=== PATIENT | female | born 1995 | race Caucasian/White ===

== ENCOUNTER 2021-07-20 21:18 | Emergency (ER) | payer BC ==
--- NOTE | 2021-07-20 22:03 | ED ---
Female Urogenital HPI - General Chief complaint: Vaginal Bleeding Stated complaint: 9 Wks preg,Spotting Time Seen by Provider: 07/20/21 21:30 Source: patient Mode of arrival: ambulatory Limitations: no limitations - History of Present Illness MD Complaint: vaginal bleeding Onset/Timin -: hour(s) Severity scale (1-10): 0 Improves with: none Worsens with: none Patient : Yes Number of weeks : 9 Associated Symptoms: vaginal bleeding - Related Data : 2 Para: 1 A: 0 Home Medications Medication Instructions Recorded Confirmed Pnv,Calcium 72/Iron/Folic Acid 1 each PO 11/09/15 11/09/15 [ Plus Tablet] Previous Rx's Medication Instructions Recorded Ibuprofen [Motrin] 600 mg PO Q6HR PRN #30 tab 11/12/15 Allergies Allergy/AdvReac Type Severity Reaction Status Date / Time No Known Allergies Allergy Verified 07/20/21 21:19 Review of Systems ROS Statement: Those systems with pertinent positive or pertinent negative responses have been documented in the HPI. ROS Other: All systems not noted in ROS Statement are negative. Constitutional: Denies: fever, chills Respiratory: Denies: cough, dyspnea Cardiovascular: Denies: chest pain, palpitations Gastrointestinal: Denies: abdominal pain, nausea, vomiting Genitourinary: Denies: dysuria, hematuria Musculoskeletal: Denies: back pain Skin: Denies: rash Neurological: Denies: headache, weakness, numbness Hematological/Lymphatic: Denies: easy bleeding Past Medical History Past Medical History: No Reported History History of Any Multi-Drug Resistant Organisms: None Reported Past Surgical History: Orthopedic Surgery Additional Past Surgical History / Comment(s): knee surgery Past Anesthesia/Blood Transfusion Reactions: No Reported Reaction Past Psychological History: No Psychological Hx Reported Smoking Status: Current every day smoker Past Alcohol Use History: None Reported Past Drug Use History: None Reported - Past Family History Mother Family Medical History: No Reported History General Exam Limitations: no limitations General appearance: alert, in no apparent distress Head exam: Present: atraumatic, normocephalic Eye exam: Present: normal appearance. Absent: scleral icterus, conjunctival injection ENT exam: Present: normal oropharynx Neck exam: Present: normal inspection Respiratory exam: Present: normal lung sounds bilaterally. Absent: respiratory distress, wheezes, rales, rhonchi, stridor Cardiovascular Exam: Present: regular rate, normal rhythm, normal heart sounds. Absent: systolic murmur, diastolic murmur, rubs, gallop GI/Abdominal exam: Present: soft, normal bowel sounds. Absent: distended, tenderness, guarding, rebound, rigid, mass, pulsatile mass, hernia Extremities exam: Present: normal inspection, normal capillary refill. Absent: pedal edema, calf tenderness Back exam: Present: normal inspection. Absent: CVA tenderness (R), CVA tenderness (L) Neurological exam: Present: alert Skin exam: Present: warm, dry, intact, normal color. Absent: rash Course Vital Signs 07/20/21 07/20/21 21:19 22:11 Temperature 98.5 F Pulse Rate 79 71 Respiratory 20 18 Rate Blood Pressure 148/108 142/99 O2 Sat by Pulse 99 99 Oximetry Medical Decision Making - Lab Data Result diagrams: 07/20/21 22:02 Lab Results 07/20/21 Range/Units 22:02 WBC 10.3 (3.8-10.6) k/uL RBC 4.44 (3.80-5.40) m/uL Hgb 13.9 (11.4-16.0) gm/dL Hct 41.0 (34.0-46.0) % MCV 92.2 (80.0-100.0) fL MCH 31.3 (25.0-35.0) pg MCHC 33.9 (31.0-37.0) g/dL RDW 12.9 (11.5-15.5) % Plt Count 223 (150-450) k/uL MPV 8.0 Neutrophils % 65 % Lymphocytes % 26 % Monocytes % 5 % Eosinophils % 1 % Basophils % 0 % Neutrophils # 6.7 (1.3-7.7) k/uL Lymphocytes # 2.7 (1.0-4.8) k/uL Monocytes # 0.6 (0-1.0) k/uL Eosinophils # 0.1 (0-0.7) k/uL Basophils # 0.0 (0-0.2) k/uL Disposition Clinical Impression: Threatened Disposition: HOME SELF-CARE Condition: Good Instructions (If sedation given, give patient instructions): Threatened Miscarriage (ED) Is patient prescribed a controlled substance at d/c from ED?: No Referrals: Stephen Linton MD [Primary Care Provider] - 1-2 days
[2021-07-20 22:12] LABS: Basophils % (A) 0 %; Eosinophils # (A) 0.1 k/uL (0-0.7); Eosinophils % (A) 1 %; HGB 13.9 gm/dL (11.4-16.0); Lymphocytes # (A) 2.7 k/uL (1.0-4.8); Lymphocytes % (A) 26 %; MCH 31.3 pg (25.0-35.0); MCHC 33.9 g/dL (31.0-37.0); MCV 92.2 fL (80.0-100.0); Monocytes # (A) 0.6 k/uL (0-1.0); Monocytes % (A) 5 %; Neutrophils # (A) 6.7 k/uL (1.3-7.7); Neutrophils % (A) 65 %; Platelet Count 223 k/uL (150-450); RBC 4.44 m/uL (3.80-5.40); RDW 12.9 % (11.5-15.5); WBC 10.3 k/uL (3.8-10.6)
[2021-07-20 22:15] VITALS: RESP 18
--- NOTE | 2021-07-20 22:36 | US ---
EXAMINATION TYPE: Transabdominal DATE OF EXAM: 07/20/2021 10:27 PM COMPARISON: NONE CLINICAL HISTORY: vaginal bleeding. spotting x 1 day with a small clot passing today, no cramping, , Covid+ EXAM PERFORMED: OBTA EXAM MEASUREMENTS: GESTATIONAL AGE / DATING Physician Established: (9 weeks/4 days) EDC: 02/18/2022 Dates by LMP: LMP unknown Dates by First Scan: No previous here Dates by Current Scan for: (9 weeks/4 days) EDC: 02/18/2022 MATERNAL ANATOMY Uterus: 9.3 x 6.2 x 6.5cm Right Ovary: not seen, enlarging UT and bowel gas Left Ovary: 3.0 x 2.0 x 2.0cm Post CDS / Adnexa: wnl Presence of free fluid: no Presence of corpus luteal cyst: yes, left = 1.8cm Presence of subchorionic bleed: no GESTATION / SURVEY CRL: 2.6cm (9 weeks/4 days) MSD: wnl Yolk Sac (normal less than 6mm): 0.3 Heart Rate: 169 bpm Rhythm: Normal IUP: Viable IUP Date of LMP: unknown IMPRESSION: The ultrasound gestational age is 19 weeks and 4 days. No complicating process seen.
[2021-07-21 01:42] VITALS: BP 139/97; PULSE 81; TEMP 98.1
== END 2021-07-21 01:41 | disposition home or self-care (01) ==
LOC: EC 21:18
DX: O20.0 Threatened abortion (principal); F17.200 Nicotine dependence, unspecified, uncomplicated; Z3A.09 9 weeks gestation of pregnancy
CPT/HCPCS: 36415; 76801; 84702; 85025; 86900; 86901; 99284

== ENCOUNTER → 2021-11-12 | Outpatient (CLI) | payer BC | END | disposition home or self-care (01) | LOC: LABWHC1 09:01 | PROVIDERS: ATTEND Obstetrics & Gynecology | DX: Z36.9 Encounter for antenatal screening, unspecified (principal) | CPT/HCPCS: 36415; 82950 ==

== ENCOUNTER 2022-02-11 08:40 | Inpatient (IN) | payer BC ==
[2022-02-11 09:01] LABS: Glucose,Whole Blood 88 mg/dL (70-110)
[2022-02-11] MEDS ORDERED: TERBUTALINE 1 MG/ML VIAL SQ PRN (09:05)
[2022-02-11] MEDS ORDERED: PENICILLIN G POTASSIUM 5,000,000 UNIT in DEXTROSE 5% IN WATER 100 ML IVPB STA ×2 (09:05)
[2022-02-11] MEDS ORDERED: OXYTOCIN 10 UNIT/ML 1 ML VIAL IM PRN (09:05)
[2022-02-11] MEDS ORDERED: METHYLERGONOVINE 0.2 MG/ML 1 ML AMP IM PRN (09:05)
[2022-02-11] MEDS ORDERED: LIDOCAINE 0.5% (PF) 5 MG/ML (50 ML SDV) SQ PRN (09:05)
[2022-02-11] MEDS ORDERED: CARBOPROST TROMETHAMINE 250 MCG/ML 1 ML AMP IM PRN (09:05)
[2022-02-11] MEDS ORDERED: LACTATED RINGERS 1,000 ML IV SCH (09:15)
[2022-02-11 09:22] LABS: Basophils % (A) 0 %; Eosinophils # (A) 0.1 k/uL (0-0.7); Eosinophils % (A) 1 %; HCT 34.7 % (34.0-46.0); HGB 11.6 gm/dL (11.4-16.0); Lymphocytes # (A) 1.6 k/uL (1.0-4.8); Lymphocytes % (A) 10 %; MCH 29.5 pg (25.0-35.0); MCHC 33.5 g/dL (31.0-37.0); Monocytes # (A) 0.6 k/uL (0-1.0); Monocytes % (A) 4 %; Neutrophils # (A) 13.5 k/uL (1.3-7.7); Neutrophils % (A) 83 %; Platelet Count 308 k/uL (150-450); RBC 3.95 m/uL (3.80-5.40); RDW 15.4 % (11.5-15.5); WBC 16.2 k/uL (3.8-10.6)
--- NOTE | 2022-02-11 10:08 | P.HPOB ---
History of Present Illness H&P Date: 02/11/22 Chief Complaint: Labor at 39 weeks gestation This is a 26-year-old 2 para 0101 woman with an estimated due date of 02/18/2022 based on 11 week ultrasound. She presents at 39 weeks gestation in spontaneous active labor. She reports leaking of fluid starting at appro ximately 9 PM on 02/10/2022 and increasing contractions throughout the evening. She presents to labor and delivery triage with regular contractions noted. Amnio sure is positive and the patient is 5+ centimeters dilated. She is therefore admitted. has been complicated by gestational diabetes, diet controlled. She was diagnosed with coated early in the and has been monitored with testing all which has been reassuring. She is known group B strep positive. Obstetric history significant for premature rupture of membranes at 35 weeks, delivered of a 5 lbs. 13 oz. in 2016. Laboratory data: Blood type O positive, antibody screen negative, rubella immune, VDRL nonreactive, hep Shara surface antigen negative, HIV negative, gonorrhea and clinic cultures negative, group B strep positive. Review of Systems All systems: negative Past Medical History Past Medical History: No Reported History Additional Past Medical History / Comment(s): gestational diabetes diet controlled History of Any Multi-Drug Resistant Organisms: None Reported Past Surgical History: Orthopedic Surgery Additional Past Surgical History / Comment(s): knee surgery Past Anesthesia/Blood Transfusion Reactions: No Reported Reaction Past Psychological History: No Psychological Hx Reported Smoking Status: Current every day smoker, Light tobacco smoker Past Alcohol Use History: None Reported Past Drug Use History: None Reported - Past Family History Mother Family Medical History: No Reported History Medications and Allergies Home Medications Medication Instructions Recorded Confirmed Type Pnv,Calcium 72/Iron/Folic Acid 1 each PO DAILY 11/09/15 02/11/22 History [ Plus Tablet] Aspirin [Adult Low Dose Aspirin EC] 81 mg PO DAILY 02/11/22 02/11/22 History Allergies Allergy/AdvReac Type Severity Reaction Status Date / Time No Known Allergies Allergy Verified 02/11/22 08:52 Exam Vital Signs Temp Pulse Resp BP 02/11/22 09:58 97.9 F 95 17 134/90 Intake and Output 02/10/22 02/11/22 02/11/22 22:59 06:59 14:59 Other: Weight 92.986 kg Targeted physical exam is performed. Patient is visibly gravid, very unco mfortable and actively laboring. On pelvic examination the cervix is 9 cm dilated, 90% effaced and the vertex in the -1 station. 4 bag of amniotic fluid was ruptured and clear fluid is noted. She is krystina spontaneously every 2-3 minutes. heart tones are category 1. Results Result Diagrams: 02/11/22 09:00 Abnormal Lab Results - Last 24 Hours (Table) 02/11/22 Range/Units 09:00 WBC 16.2 H (3.8-10.6) k/uL Neutrophils # 13.5 H (1.3-7.7) k/uL Assessment and Plan (1) GBS (group B Streptococcus carrier), +RV culture, currently Current Visit: Yes Status: Acute Code(s): O99.820 - STREPTOCOCCUS B CARRIER STATE COMPLICATING SNOMED Code(s): 0746602616074 (2) Gestational diabetes Current Visit: Yes Status: Acute Code(s): O24.419 - GESTATIONAL DIABETES MELLITUS IN , UNSP CONTROL SNOMED Code(s): 22242672 (3) Spontaneous onset of labor Current Visit: Yes Status: Acute Code(s): EIQ1783 - SNOMED Code(s): 33215372 (4) Spontaneous rupture of membranes Current Visit: Yes Status: Acute Code(s): MIG6750 - SNOMED Code(s): 353368314 Plan: 26-year-old 2 para 0101 woman admitted at 39 weeks gestation in spontaneous active labor. Group B strep prophylactic antibiotics have been initiated however the patient has been on ruptured for greater than 12 hours at this time. status is currently reassuring by external monitoring. I anticipate normal spontaneous vaginal delivery.
[2022-02-11] MEDS ORDERED: diphenhydrAMINE 50 MG CAP PO PRN (11:18)
[2022-02-11] MEDS ORDERED: IBUPROFEN 600 MG TAB PO PRN (11:18)
[2022-02-11] MEDS ORDERED: diphenhydrAMINE 50 MG/ML 1 ML VIAL IVP PRN ×2 (11:18)
[2022-02-11] MEDS ORDERED: BENZOCAINE/MENTHOL SPRAY 1 GM/SPRAY AEROSOL TOPICAL PRN (11:18)
[2022-02-11] MEDS ORDERED: HYDROCORTISONE 2.5% RECTAL CREAM 30 GM TUBE RECTAL PRN (11:18)
[2022-02-11] MEDS ORDERED: SIMETHICONE 80 MG CHEWABLE PO PRN (11:18)
[2022-02-11] MEDS ORDERED: LANOLIN CREAM 5 GM TUBE TOPICAL PRN (11:18)
[2022-02-11] MEDS ORDERED: ACETAMINOPHEN TAB 325 MG TAB PO PRN (11:18)
[2022-02-11] MEDS ORDERED: diphenhydrAMINE 25 MG CAP PO PRN (11:18)
[2022-02-11] MEDS ORDERED: ZOLPIDEM 5 MG TAB PO PRN (11:18)
--- NOTE | 2022-02-11 11:18 | P.PROBDLV ---
Vaginal Delivery Note - . Vaginal Delivery Note: Findings: Male infant in the vertex left occiput anterior position with Apgars of 9 at 1 minute and 10 at 5 minutes weighing 6 lbs. 10 oz. First-degree vaginal laceration. Intact, three-vessel cord placenta. EBL 150 mL's. Delivery summary: This is a 26-year-old 2 para 0101 woman who presented at 39 weeks gestation in active labor. She had spontaneous rupture of membranes approximately 12 hours prior to presentation. She is known group B strep positive and did receive a dose of penicillin group B strep prophylaxis. She was 5 cm dilated upon admission and progressed rapidly to 9+ centimeters dilated at which time a fore bag was ruptured and clear fluid was noted. She progressed to complete cervical dilation with strong urge to push. She did push to at which time she was repositioned, prepped and draped in the dorsal modified Kayy position. With additional maternal effort the head delivered from the left occiput anterior position followed by the anterior and posterior shoulders rapidly. The resting. Delivered onto the field and the nose and mouth were bulb suctioned. The was placed on the maternal abdomen. After passage of a couple of minutes the cord was clamped and cut. Apgars were 9 at 1 minute and 10 at 5 minutes. An intact, three-vessel cord placenta was delivered after a proximally 5 minute third stage of labor. The perineum was inspected and a small for 3 vaginal laceration was noted but was actively bleeding. This was infused with lidocaine and repaired with a single [id number] stitch of 3-0 Vicryl suture. The rest the vagina and was inspected no further lacerations were noted. The uterus was massaged and was noted to be firm at the level of the umbilicus. EBL was approximately 150 mL's. Both mother and infant were doing well post delivery in the room. Counts were correct.
[2022-02-11] MEDS ORDERED: OXYTOCIN 30 UNITS/500 ML NS 30 UNIT in SALINE 1 500ML.BAG IV SCH (11:30)
[2022-02-11] MEDS ORDERED: PENICILLIN G POTASSIUM 2,500,000 UNIT in DEXTROSE 5% IN WATER 100 ML IVPB SCH ×2 (13:30)
[2022-02-11 20:17] VITALS: RESP 16
[2022-02-11] MEDS: SENNOSIDES-DOCUSATE SODIUM 1 EACH TAB PO SCH (20:17)
[2022-02-12] MEDS: SENNOSIDES-DOCUSATE SODIUM 1 EACH TAB PO SCH ×2 (07:23→22:04)
[2022-02-12 07:46] LABS: Basophils # (A) 0.1 k/uL (0-0.2); Basophils % (A) 0 %; Eosinophils # (A) 0.2 k/uL (0-0.7); Eosinophils % (A) 1 %; HCT 32.5 % (34.0-46.0); HGB 10.9 gm/dL (11.4-16.0); Lymphocytes # (A) 2.5 k/uL (1.0-4.8); Lymphocytes % (A) 16 %; MCH 29.8 pg (25.0-35.0); MCHC 33.4 g/dL (31.0-37.0); MCV 89.2 fL (80.0-100.0); Monocytes # (A) 0.7 k/uL (0-1.0); Monocytes % (A) 5 %; Neutrophils # (A) 11.9 k/uL (1.3-7.7); Neutrophils % (A) 77 %; Platelet Count 269 k/uL (150-450); RBC 3.64 m/uL (3.80-5.40); WBC 15.5 k/uL (3.8-10.6)
--- NOTE | 2022-02-12 10:14 | P.PN ---
Subjective Progress Note Date: 02/12/22 Principal diagnosis: day #1 No complaints, minimal lochia, feeling well. Objective - Vital Signs Vital signs: Vital Signs Temp 98.0 F 02/12/22 07:52 Pulse 76 02/12/22 07:52 Resp 16 02/12/22 07:52 BP 134/89 02/12/22 07:52 Pulse Ox 96 02/12/22 04:00 FiO2 Intake & Output 02/11/22 02/12/22 02/12/22 18:59 06:59 18:59 Intake Total 167 Output Total 325 Balance -158 Weight 92.986 kg Intake: Intake, IV Titration 167 Amount Oxytocin 30 Units/500 ml 167 Ns 30 unit In Saline 1 500ml.bag @ Per Protocol IV .Q0M ALICE Rx#:[id number] Output: Estimated Blood Loss 150 Output, Quantitative 175 Blood Loss Other: # Voids 1 - Constitutional General appearance: Present: average body habitus, cooperative - EENT Eyes: Present: PERRLA ENT: Present: hearing grossly normal - Respiratory Respiratory: bilateral: CTA - Cardiovascular Rhythm: regular - Gastrointestinal General gastrointestinal: Present: normal bowel sounds - Integumentary Integumentary: Present: normal - Neurologic Neurologic: Present: CNII-XII intact - Musculoskeletal Musculoskeletal: Present: gait normal - Psychiatric Psychiatric: Present: A&O x's 3, appropriate affect, intact judgment & insight - Labs CBC & Chem 7: 02/12/22 07:17 Labs: Abnormal Lab Results - Last 24 Hours (Table) 02/12/22 Range/Units 07:17 WBC 15.5 H (3.8-10.6) k/uL RBC 3.64 L (3.80-5.40) m/uL Hgb 10.9 L (11.4-16.0) gm/dL Hct 32.5 L (34.0-46.0) % Neutrophils # 11.9 H (1.3-7.7) k/uL Assessment and Plan Assessment: Doing well first day Plan: Continue care. Circumcision now. Likely discharge home tomorrow. Time with Patient: Less than 30
--- NOTE | 2022-02-13 08:06 | P.DS ---
Providers Date of admission: 02/11/22 09:06 Expected date of discharge: 02/13/22 Attending physician: Nidhi Blackburn Primary care physician: Stated None Hospital Course: This is a 26-year-old white female 2 para 1001 EDC 02/18/2022 at 39 weeks gestation who presented in active spontaneous labor. remarkable for gestational diabetes, diet controlled. Positive group B strep status, blood type O+. Please see dictated history and physical for details. Patient delivered spontaneously a liveborn male with scores of 9 and 10 at one and 5 minutes respectively. There was a small first-degree vaginal laceration easily repaired. Infant weighed 6 lbs. 10 oz. or 3016 g. Please see dictated delivery note for details. This morning the patient is doing well. She is voiding, ambulating, passing flatus without difficulty. Vital signs are stable and she is afebrile. Fundus is firm and in the midline, symmetric and 18 week size, nontender. has been circumcised and is doing well. Patient is judged to be in very good condition for discharge home. She will follow-up in the office with me in 6 weeks. I have reminded her no intercourse, tampons or douching. She will use [id number] Advil or Aleve, or Motrin as needed for pain. I've asked her to call with any fevers shakes or chills, foul smelling or copious lochia, with the passage of large blood clots, with any pain not alleviated by [id number] products, or indeed with any concerns. Assessment: Doing well second day Patient Condition at Discharge: Good Plan - Discharge Summary Discharge Rx Participant: No New Discharge Prescriptions: No Action Pnv,Calcium 72/Iron/Folic Acid [ Plus Tablet] 1 each PO DAILY Aspirin [Adult Low Dose Aspirin EC] 81 mg PO DAILY Discharge Medication List Pnv,Calcium 72/Iron/Folic Acid [ Plus Tablet] 1 each PO DAILY 11/09/15 [History] Aspirin [Adult Low Dose Aspirin EC] 81 mg PO DAILY 02/11/22 [History] Follow up Appointment(s)/Referral(s): Nidhi Blackburn MD [STAFF PHYSICIAN] - 6 Weeks Discharge Disposition: HOME SELF-CARE
[2022-02-13 09:55] VITALS: BP 124/87; PULSE 82; TEMP 98
== END 2022-02-13 12:27 | disposition home or self-care (01) | DRG 807 ==
LOC: FBPOP 08:40 → 4FBP 09:06
PROVIDERS: ADMIT Obstetrics & Gynecology; ATTEND Obstetrics & Gynecology
PROC: 10E0XZZ Delivery of Products of Conception, External Approach (ICD-10-PCS; principal; 2022-02-11)
PROC: 0HQ9XZZ Repair Perineum Skin, External Approach (ICD-10-PCS; 2022-02-11)
PROC: 10907ZC Drainage of Amniotic Fluid, Therapeutic from Products of Conception, Via Natural or Artificial Opening (ICD-10-PCS; 2022-02-11)
PROC: 4A0HXCZ Measurement of Products of Conception, Cardiac Rate, External Approach (ICD-10-PCS; 2022-02-11)
DX: O24.420 Gestational diabetes mellitus in childbirth, diet controlled (principal); Z37.0 Single live birth; F17.210 Nicotine dependence, cigarettes, uncomplicated; O70.0 First degree perineal laceration during delivery; O42.92 Full-term premature rupture of membranes, unspecified as to length of time between rupture and onset of labor; O99.334 Smoking (tobacco) complicating childbirth; O99.824 Streptococcus B carrier state complicating childbirth; Z3A.39 39 weeks gestation of pregnancy; Z79.82 Long term (current) use of aspirin; Z87.59 Personal history of other complications of pregnancy, childbirth and the puerperium
CPT/HCPCS: 59025; 84112; 85025; 86850; 86900; 86901; 99213